=== PATIENT | female | born 1940 | race Caucasian/White ===

== ENCOUNTER 2024-10-03 00:05 | Day surgery (SDC) | payer OTHER ==
[2024-10-03] MEDS ORDERED: Bystolic2.5 MG PO (14:51)
[2024-10-03] MEDS ORDERED: ALPR.25 PO (14:51)
[2024-10-03] MEDS ORDERED: EUTHYROX50 MCG PO (14:51)
[2024-10-03] MEDS ORDERED: Prednisone10 MG PO (14:52)
== END 2024-10-03 14:44 | disposition home or self-care (01) ==
LOC: ATC 00:05
DX: C19 Malignant neoplasm of rectosigmoid junction (principal); C78.7 Secondary malignant neoplasm of liver and intrahepatic bile duct
CPT/HCPCS: 96523; J1642

== ENCOUNTER 2024-10-25 03:14 | Day surgery (SDC) | payer OTHER ==
[~2024-10-25 03:14] MED LIST: ALPR.25 PO; Bystolic2.5 MG PO; EUTHYROX50 MCG PO; Prednisone10 MG PO
== END 2024-10-25 14:36 | disposition home or self-care (01) ==
LOC: ATC 03:14
DX: C19 Malignant neoplasm of rectosigmoid junction (principal); C78.7 Secondary malignant neoplasm of liver and intrahepatic bile duct; Z79.899 Other long term (current) drug therapy
CPT/HCPCS: 96523; J1642

== ENCOUNTER 2024-11-08 02:20 | Day surgery (SDC) | payer OTHER ==
--- NOTE | 2024-11-08 13:02 | NUR ---
PATIENT CALLED AND CANCELLED. HER PUMP WAS DC'D AT HER MD OFFICE
[2024-11-08 16:42] VITALS: BP 171/73
== END 2024-11-08 16:51 | disposition home or self-care (01) ==
LOC: ATC 02:20
DX: C19 Malignant neoplasm of rectosigmoid junction (principal); C78.7 Secondary malignant neoplasm of liver and intrahepatic bile duct
CPT/HCPCS: 96523; J1642

== ENCOUNTER 2024-12-06 00:49 | Day surgery (SDC) | payer OTHER ==
[2024-12-06 14:56] VITALS: BP 159/78
== END 2024-12-06 15:02 | disposition home or self-care (01) ==
LOC: ATC 00:49
DX: C18.7 Malignant neoplasm of sigmoid colon (principal); C78.7 Secondary malignant neoplasm of liver and intrahepatic bile duct
CPT/HCPCS: 96523; J1642

== ENCOUNTER 2025-01-03 00:04 | Day surgery (SDC) | payer OTHER ==
[2025-01-03 14:35] VITALS: BP 164/82
== END 2025-01-03 14:46 | disposition home or self-care (01) ==
LOC: ATC 00:04
DX: C19 Malignant neoplasm of rectosigmoid junction (principal); C78.7 Secondary malignant neoplasm of liver and intrahepatic bile duct; G89.3 Neoplasm related pain (acute) (chronic); Z79.52 Long term (current) use of systemic steroids; Z79.890 Hormone replacement therapy; Z79.899 Other long term (current) drug therapy
CPT/HCPCS: 96523; J1642

== ENCOUNTER 2025-01-17 06:31 | Day surgery (SDC) | payer OTHER ==
[2025-01-17 14:30] VITALS: BP 169/85
== END 2025-01-17 14:33 | disposition home or self-care (01) ==
LOC: ATC 06:31
DX: C19 Malignant neoplasm of rectosigmoid junction (principal); C78.7 Secondary malignant neoplasm of liver and intrahepatic bile duct; Z79.899 Other long term (current) drug therapy
CPT/HCPCS: 96523; J1642

== ENCOUNTER 2025-01-31 03:48 | Day surgery (SDC) | payer OTHER ==
[2025-01-31 14:33] VITALS: BP 170/87
== END 2025-01-31 14:45 | disposition home or self-care (01) ==
LOC: ATC 03:48
DX: C19 Malignant neoplasm of rectosigmoid junction (principal); C78.7 Secondary malignant neoplasm of liver and intrahepatic bile duct; G62.9 Polyneuropathy, unspecified
CPT/HCPCS: 96523; J1642

== ENCOUNTER 2025-03-14 09:36 | Day surgery (SDC) | payer OTHER ==
--- NOTE | 2025-03-14 15:46 | NUR ---
NO CALL, NO SHOW
== END 2025-03-14 16:22 | disposition home or self-care (01) ==
LOC: ATC 09:36
DX: Z45.1 Encounter for adjustment and management of infusion pump (principal); C19 Malignant neoplasm of rectosigmoid junction; C78.7 Secondary malignant neoplasm of liver and intrahepatic bile duct
CPT/HCPCS: 96523; J1642

== ENCOUNTER 2025-03-30 07:41 | Day surgery (SDC) | payer OTHER ==
[2025-03-30 16:16] VITALS: BP 145/70
== END 2025-03-30 16:20 | disposition home or self-care (01) ==
LOC: ATC 07:41
DX: C19 Malignant neoplasm of rectosigmoid junction (principal); C78.7 Secondary malignant neoplasm of liver and intrahepatic bile duct; C78.02 Secondary malignant neoplasm of left lung; C78.01 Secondary malignant neoplasm of right lung; G62.0 Drug-induced polyneuropathy; T45.1X5A Adverse effect of antineoplastic and immunosuppressive drugs, initial encounter; R80.9 Proteinuria, unspecified; Z45.1 Encounter for adjustment and management of infusion pump; Z79.52 Long term (current) use of systemic steroids; Z79.899 Other long term (current) drug therapy
CPT/HCPCS: 96523; J1642

== ENCOUNTER 2025-04-13 08:37 | Day surgery (SDC) | payer OTHER ==
[2025-04-13 13:36] VITALS: BP 109/81
== END 2025-04-13 13:44 | disposition home or self-care (01) ==
LOC: ATC 08:37
DX: C19 Malignant neoplasm of rectosigmoid junction (principal); C78.7 Secondary malignant neoplasm of liver and intrahepatic bile duct; Z79.52 Long term (current) use of systemic steroids; Z79.899 Other long term (current) drug therapy
CPT/HCPCS: 96523; J1642

== ENCOUNTER 2025-04-30 00:28 | Day surgery (SDC) | payer OTHER ==
[2025-04-30 14:30] VITALS: BP 151/78
== END 2025-04-30 14:44 | disposition home or self-care (01) ==
LOC: ATC 00:28
DX: Z45.1 Encounter for adjustment and management of infusion pump (principal); C19 Malignant neoplasm of rectosigmoid junction; C78.7 Secondary malignant neoplasm of liver and intrahepatic bile duct
CPT/HCPCS: 96523; J1642

== ENCOUNTER 2025-05-14 14:29 | Day surgery (SDC) | payer OTHER ==
[2025-05-14 14:38] VITALS: BP 159/87
== END 2025-05-14 14:47 | disposition home or self-care (01) ==
LOC: ATC 14:29
DX: C19 Malignant neoplasm of rectosigmoid junction (principal); C78.7 Secondary malignant neoplasm of liver and intrahepatic bile duct
CPT/HCPCS: 96523; J1642

== ENCOUNTER 2025-05-28 01:30 | Day surgery (SDC) | payer OTHER ==
[2025-05-28 14:29] VITALS: BP 160/84
== END 2025-05-28 14:36 | disposition home or self-care (01) ==
LOC: ATC 01:30
DX: C18.7 Malignant neoplasm of sigmoid colon (principal); C78.7 Secondary malignant neoplasm of liver and intrahepatic bile duct; Z79.899 Other long term (current) drug therapy; Z79.890 Hormone replacement therapy
CPT/HCPCS: 96523; J1642